=== PATIENT | female | born 1935 | race Caucasian/White ===

== ENCOUNTER → 2018-02-01 | Outpatient (CLI) | payer OTHER ==
[~2018-02-01] MED LIST: METO25ER PO; OLME20 PO; Prednisone20 MG PO; TRIHYD253A PO
== END ==
LOC: LAB 17:33 → LAB SHORT 17:33
DX: N76.4 Abscess of vulva (principal)
CPT/HCPCS: 87070; 87077; 87205

== ENCOUNTER → 2018-03-30 | Outpatient (CLI) | payer OTHER ==
[~2018-03-30] MED LIST changes: +CLIN150 PO; +LOSA50 PO; +Zofran8 MG PO
== END | disposition home or self-care (01) ==
LOC: LAB SHORT 12:23 → LAB 12:23
DX: N76.4 Abscess of vulva (principal)
CPT/HCPCS: 87070; 87205

== ENCOUNTER 2018-04-03 21:33 | Emergency (ER) | payer OTHER ==
[~2018-04-03] VITALS: Ht 154.9 cm; Wt 64.4 kg
[~2018-04-03 21:33] MED LIST changes: -CLIN150 PO; -LOSA50 PO; -Zofran8 MG PO
[2018-04-03 22:26] LABS: BASOPHILS ABSOLUTE AUTO 0.05 K/mm3 (0.00-0.23); BASOPHILS PERCENT AUTO 1 % (0-2); EOSINOPHILS PERCENT AUTO 0 % (0-6); Hematocrit 41.5 % (33.0-51.0); Hemoglobin 13.7 g/dL (11.5-16.0); IMMATURE GRAN ABSOLUTE AUTO 0.02 K/mm3 (0.00-0.10); IMMATURE GRAN PERCENT AUTO 0 % (0-1); LYMPHOCYTES ABSOLUTE AUTO 1.02 K/mm3 (0.84-5.20); LYMPHOCYTES PERCENT AUTO 10 % (21-46); MONOCYTES ABSOLUTE AUTO 0.44 K/mm3 (0.16-1.47); MONOCYTES PERCENT AUTO 4 % (4-13); Mean Corpuscular HGB 29.8 pg (26.0-34.0); Mean Corpuscular Volume 90 fL (80-100); Mean Platelet Volume 9.9 fL (9.1-12.4); NEUTROPHILS ABSOLUTE AUTO 8.72 K/mm3 (1.96-9.15); NEUTROPHILS PERCENT AUTO 85 % (41-73); Platelet Count 361 K/mm3 (150-400); RDW Coefficient Variation 14.2 % (11.7-14.2); RDW Standard Deviation 44.4 fL (35.1-46.3); Red Blood Cell Count 4.59 M/mm3 (3.80-5.20); White Blood Cell Count 10.25 K/mm3 (4.00-11.30)
[2018-04-03 22:40] LABS: Alanine Aminotransfer (ALT/SGP 19 U/L (12-78); Albumin, Blood 3.8 g/dL (3.4-5.0); Alk Phos 89 U/L (50-136); Anion Gap 9 mmol/L (6-16); Aspartate Aminotrans (AST/SGOT 20 U/L (12-37); Bilirubin, Total 0.3 mg/dL (0.1-1.0); Blood Urea Nitrogen 15 mg/dL (8-24); Bun/Creatinine Ratio 20.9 (12.0-20.0); CO2, Blood 27 mmol/L (21-32); Calcium, Blood 9.3 mg/dL (8.5-10.1); Chloride, Blood 106 mmol/L (98-108); Creatinine, Blood 0.72 mg/dL (0.40-1.00); Globulin, Blood 3.9 g/dL (2.2-4.0); Glomerular Filtration Rate >60 (60-); Glucose, Blood 112 mg/dL (70-99); Potassium, Blood 3.9 mmol/L (3.5-5.5); Sodium, Blood 142 mmol/L (136-145); Total Protein, Blood 7.7 g/dL (6.4-8.2); Troponin I <0.015 ng/mL (0.000-0.040)
[2018-04-03] MEDS ORDERED: LOSA50 PO (23:36)
[2018-04-03] MEDS ORDERED: CLIN150 PO (23:36)
[2018-04-04] MEDS ORDERED: Zofran8 MG PO (00:03)
== END 2018-04-04 00:50 | disposition home or self-care (01) ==
LOC: ER 21:33
PROVIDERS: Emergency Medicine
DX: R11.0 Nausea (principal); Z88.8 Allergy status to other drugs, medicaments and biological substances
CPT/HCPCS: 36415; 71045; 80053; 83690; 84484; 85025; 93005; 93010; J0780; J1200; J2405; J7120

== ENCOUNTER → 2021-04-15 | Outpatient (CLI) | payer OTHER ==
[~2021-04-15] MED LIST changes: +CLIN150 PO; +LOSA50 PO; +Zofran8 MG PO
== END | disposition home or self-care (01) ==
LOC: LAB SHORT 08:05
DX: C44.619 Basal cell carcinoma of skin of left upper limb, including shoulder (principal)
CPT/HCPCS: 88305

== ENCOUNTER 2022-09-05 00:50 | Inpatient (IN) | payer OTHER ==
[2022-09-05] VITALS (12 sets, daily range): BP systolic 113–149; BP diastolic 53–73
[~2022-09-05] VITALS: Ht 152.4 cm; Wt 65.7 kg
[2022-09-05] MEDS ORDERED: LATANOPROST2.5 M3 (00:56)
[2022-09-05] MEDS ORDERED: HYDR10 (00:56)
[2022-09-05 01:03] LABS: BASOPHILS ABSOLUTE AUTO 0.08 K/mm3 (0.00-0.23); BASOPHILS PERCENT AUTO 1 % (0-2); EOSINOPHILS ABSOLUTE AUTO 0.07 K/mm3 (0.00-0.68); EOSINOPHILS PERCENT AUTO 1 % (0-6); Hematocrit 41.7 % (33.0-51.0); Hemoglobin 13.9 g/dL (11.5-16.0); IMMATURE GRAN ABSOLUTE AUTO 0.04 K/mm3 (0.00-0.10); IMMATURE GRAN PERCENT AUTO 0 % (0-1); LYMPHOCYTES ABSOLUTE AUTO 1.65 K/mm3 (0.84-5.20); LYMPHOCYTES PERCENT AUTO 13 % (21-46); MONOCYTES ABSOLUTE AUTO 1.06 K/mm3 (0.16-1.47); MONOCYTES PERCENT AUTO 8 % (4-13); Mean Corpuscular HGB Conc 33.3 g/dL (31.5-36.5); Mean Corpuscular Volume 90 fL (80-100); Mean Platelet Volume 10.3 fL (9.1-12.4); NEUTROPHILS ABSOLUTE AUTO 9.77 K/mm3 (1.96-9.15); NEUTROPHILS PERCENT AUTO 77 % (41-73); Platelet Count 307 K/mm3 (150-400); RDW Coefficient Variation 14.4 % (11.7-14.2); RDW Standard Deviation 47.5 fL (35.1-46.3); Red Blood Cell Count 4.63 M/mm3 (3.80-5.20); White Blood Cell Count 12.67 K/mm3 (4.00-11.30)
[2022-09-05 01:23] LABS: Albumin, Blood 3.4 g/dL (3.4-5.0); Bilirubin, Total 0.6 mg/dL (0.1-1.0); Bun/Creatinine Ratio 18.8 (12.0-20.0); Calcium, Blood 8.8 mg/dL (8.5-10.1); Creatinine, Blood 0.8 mg/dL (0.40-1.00); Globulin, Blood 3.5 g/dL (2.2-4.0); Potassium, Blood 3.7 mmol/L (3.5-5.5); Total Protein, Blood 6.9 g/dL (6.4-8.2)
--- NOTE | 2022-09-05 06:56 | NUR ---
ER ADMIT FOR ACUTE CHOLECYSTITIS PT ARRIVED TO ROOM VIA GURNEY, AMBULATED TO ROOM FROM [facility]. A&OX4, PLEASANT AND COOPERATIVE. PLANS FOR 0800 SURGERY. PT STABLE AND DENIES PAIN AT THIS TIME. PT AMBULATES WELL AND LIVES INDEPENDANTLY IN OWN HOME. DENIES CG ASSISTANCE.
--- NOTE | 2022-09-05 07:41 | NUR ---
PATIENT JUST LEFT FOR THE OR.
--- NOTE | 2022-09-05 08:01 | NUR ---
DR VELA AT BEDSIDE PROVIDER ASSESSMENT, VERIFIED IRREGULAR HEART RYTHM AND ORDERS TELE TO BE PLACED DURING STAY R/T NO DX HX OF CARDIAC ISSUES.
--- NOTE | 2022-09-05 10:42 | NUR ---
PATIENT JUST ARRIVED FROM PACU TODAY AT 1030. POD 0 LAP SHARMIN PATIENT IS DROWSY BUT EASILY ARROUSED BY VERBAL STIMULI. WHEN AWAKE PATIENT IS A&OX4. PATIENT IS ON 3L NC AT THIS TIME WITH >90% OXYGEN SATS AND OTHERWISE VS ARE WNL. PATIENT DENIES PAIN AT THIS TIME. HER ABD HAS X4 LAP SITES WITH WOUND GLUE THAT ARE C/D/I. DENIES NAUSEA OR VOMITING. SHE IS TOLERATING SMALL AMOUNTS OF PO INTAKE. PATIENT IS LAYING IN BED WITH CALL LIGHT IN REACH.
--- NOTE | 2022-09-05 15:59 | NUR ---
SHIFT SUMMARY: POD 0 LAP SHARMIN PATIENT IS A&OX4. VS ARE WNL AND IS ON RA AT THIS TIME. PATIENT APPEARS TO BE MORE AWAKE THAN EARLIER IN THE SHIFT. SHE IS TOLERATING PO INTAKE. PATIENT HAS REFUSED PAIN MEDICATIONS BUT IS AWARE OF HER PRN PAIN MEDICATIONS. SHE HAS X4 ABD LAP SITES WITH WOUND GLUE THAT ARE ALL C/D/I. PATIENT DENIES NAUSEA OR VOMITING. SHE IS LAYING IN BED WITH CALL LIGHT IN REACH.
[2022-09-06 00:11] VITALS: BP 127/56
[2022-09-06 04:42] VITALS: BP 147/65
[2022-09-06 04:52] LABS: BASOPHILS ABSOLUTE AUTO 0.04 K/mm3 (0.00-0.23); BASOPHILS PERCENT AUTO 0 % (0-2); EOSINOPHILS ABSOLUTE AUTO 0.01 K/mm3 (0.00-0.68); EOSINOPHILS PERCENT AUTO 0 % (0-6); Hematocrit 37.3 % (33.0-51.0); Hemoglobin 12.6 g/dL (11.5-16.0); IMMATURE GRAN ABSOLUTE AUTO 0.06 K/mm3 (0.00-0.10); IMMATURE GRAN PERCENT AUTO 1 % (0-1); LYMPHOCYTES PERCENT AUTO 8 % (21-46); MONOCYTES ABSOLUTE AUTO 0.98 K/mm3 (0.16-1.47); MONOCYTES PERCENT AUTO 7 % (4-13); Mean Corpuscular HGB 30.2 pg (26.0-34.0); Mean Corpuscular HGB Conc 33.8 g/dL (31.5-36.5); Mean Corpuscular Volume 89 fL (80-100); Mean Platelet Volume 10.5 fL (9.1-12.4); NEUTROPHILS ABSOLUTE AUTO 11.14 K/mm3 (1.96-9.15); NEUTROPHILS PERCENT AUTO 84 % (41-73); Platelet Count 242 K/mm3 (150-400); RDW Coefficient Variation 14.9 % (11.7-14.2); Red Blood Cell Count 4.17 M/mm3 (3.80-5.20); White Blood Cell Count 13.23 K/mm3 (4.00-11.30)
[2022-09-06 05:16] LABS: Albumin, Blood 2.9 g/dL (3.4-5.0); Albumin/Globulin Ratio 0.9 (0.8-1.8); Bilirubin, Total 1.6 mg/dL (0.1-1.0); Bun/Creatinine Ratio 18.7 (12.0-20.0); Calcium, Blood 8.5 mg/dL (8.5-10.1); Creatinine, Blood 0.97 mg/dL (0.40-1.00); Globulin, Blood 3.1 g/dL (2.2-4.0); Potassium, Blood 3.9 mmol/L (3.5-5.5)
--- NOTE | 2022-09-06 06:45 | NUR ---
SHIFT SUMMARY POD 1 LAP SHARMIN, 4 LAP SITES W/ TISSUE GLUE. SITES C/D/I, NO CONCERS OF REDNESS, SWELLING, DRAINAGE, OR INCREASED PAIN. PT MEDICATED W/ TRAMADOL 1X FOR 1/10 ABD PAIN W/ GOOD RESULTS. PT DENIES N/T, N/V, DIZZINESS, OR SOB. AMB TO BATHROOM W/ ASSIST. NO ACUTE CHANGES THIS SHIFT, PT PLANS TO DISCHARGE TO HOME TODAY. CALL LIGHT W/IN REACH.
[2022-09-06 07:05] VITALS: BP 126/60
--- NOTE | 2022-09-06 14:00 | NUR ---
Upon receiving a referrral for spiritual care, I visited the patient. Patient is sitting on a chair and alert. She has a visitor in the . Patient shares about the events that led to the patient's hospitalization, the successful surgery and and the plan to d/c tomorrow. Patient talks about the of her spouse, the good family and friend support and her Sabianist samantha. I provide therapeutic listening and prayer. Patient responded well and showed signs of an elevated mood. I will continue to remain available to patient and family.
[2022-09-06 14:25] VITALS: BP 136/57
--- NOTE | 2022-09-06 18:44 | NUR ---
SHIFT SUMMARY PT A&OX4, VSS/RA, ANNA PO REG DIET, VOIDING, AMBULATING INDEPENDENTLY, PAIN MANAGED WITH ULTRAM PRN, UNASYN Q6/IVF KVO, TELE SB 56 BPM. POD1 SHRUTHI LAP SHARMIN, 5 LAP SITES, WOUND GLUE, DRY/INTACT. WILL REPORT TO ONCOMING NOC RN.
[2022-09-06 19:26] VITALS: BP 144/62
[2022-09-07 04:31] VITALS: BP 135/63
[2022-09-07 05:55] LABS: BASOPHILS PERCENT AUTO 1 % (0-2); EOSINOPHILS ABSOLUTE AUTO 0.28 K/mm3 (0.00-0.68); EOSINOPHILS PERCENT AUTO 3 % (0-6); Hematocrit 36.5 % (33.0-51.0); Hemoglobin 11.9 g/dL (11.5-16.0); IMMATURE GRAN ABSOLUTE AUTO 0.04 K/mm3 (0.00-0.10); IMMATURE GRAN PERCENT AUTO 0 % (0-1); LYMPHOCYTES ABSOLUTE AUTO 1.66 K/mm3 (0.84-5.20); LYMPHOCYTES PERCENT AUTO 17 % (21-46); MONOCYTES ABSOLUTE AUTO 1.28 K/mm3 (0.16-1.47); MONOCYTES PERCENT AUTO 13 % (4-13); Mean Corpuscular HGB 29.8 pg (26.0-34.0); Mean Corpuscular HGB Conc 32.6 g/dL (31.5-36.5); Mean Corpuscular Volume 91 fL (80-100); Mean Platelet Volume 10.5 fL (9.1-12.4); NEUTROPHILS ABSOLUTE AUTO 6.21 K/mm3 (1.96-9.15); NEUTROPHILS PERCENT AUTO 65 % (41-73); Platelet Count 245 K/mm3 (150-400); RDW Coefficient Variation 15.3 % (11.7-14.2); RDW Standard Deviation 51.2 fL (35.1-46.3); White Blood Cell Count 9.57 K/mm3 (4.00-11.30)
--- NOTE | 2022-09-07 06:15 | NUR ---
SHIFT SUMMARY NO ACUTE CHANGES NOTED, PAIN WNL, LAP SITES C/D/I, SR REPORTED BY DIRECT MAIL COORDINATOR, DENIES CP/PRESSURE, VSS, ON RA, TOLERATING PO INTAKE, VOIDING WNL, CALLS FOR ASSISTANCE PRN, RESTING COMFORTABLY THIS AM, CALL LIGHT IN REACH
[2022-09-07 06:33] LABS: Albumin, Blood 2.8 g/dL (3.4-5.0); Albumin/Globulin Ratio 0.9 (0.8-1.8); Bilirubin, Total 0.7 mg/dL (0.1-1.0); Bun/Creatinine Ratio 23.3 (12.0-20.0); Calcium, Blood 8.3 mg/dL (8.5-10.1); Creatinine, Blood 0.86 mg/dL (0.40-1.00); Globulin, Blood 3.2 g/dL (2.2-4.0); Potassium, Blood 4.1 mmol/L (3.5-5.5)
[2022-09-07 07:26] VITALS: BP 147/69
[2022-09-07 11:18] VITALS: BP 149/64
[2022-09-07] MEDS ORDERED: MIRALAX17 GM PO (11:18)
[2022-09-07] MEDS ORDERED: DOCU100 PO (11:18)
[2022-09-07] MEDS ORDERED: HYDR1TAB94 PO (11:21)
--- NOTE | 2022-09-07 11:30 | NUR ---
DISCHARGE PT A&OX4, VSS/RA, ANNA PO REG DIET, VOIDING/PASSING FLATUS, AMB INDEPENDENTLY, PAIN MANAGED, IV DC'D, TELE NSR 61 BPM. DC INS PROVIDED. PT REP UNDERSTANDING THOSE INSTRUCTIONS INCLUDING FU APPT WITH PCP AND SURGEON. LEFT FLOOR VIA WC WITH ORTHOPAEDIC SURGEON TO GO HOME WITH FRIEND WITH ALL PERSONAL POSSESSIONS INCLUDING DC PACKET AND 1 NARC SCRIPT.
== END 2022-09-07 11:45 | disposition home or self-care (01) | DRG 419 ==
LOC: ER 00:50 → SURS 00:51
PROVIDERS: Internal Medicine; Student in an Organized Health Care Education/Training Program; Surgery; ADMIT Internal Medicine
PROC: 8E0W4CZ Robotic Assisted Procedure of Trunk Region, Percutaneous Endoscopic Approach (ICD-10-PCS; 2022-09-05)
PROC: 0FT44ZZ Resection of Gallbladder, Percutaneous Endoscopic Approach (ICD-10-PCS; principal; 2022-09-05 08:00)
DX: K81.0 Acute cholecystitis (principal); M54.9 Dorsalgia, unspecified; I10 Essential (primary) hypertension; D72.829 Elevated white blood cell count, unspecified; R74.01 Elevation of levels of liver transaminase levels; R79.89 Other specified abnormal findings of blood chemistry; K59.00 Constipation, unspecified; Z88.8 Allergy status to other drugs, medicaments and biological substances; Z79.899 Other long term (current) drug therapy; Z90.710 Acquired absence of both cervix and uterus; Z90.89 Acquired absence of other organs
CPT/HCPCS: 36415; 71046; 74177; 76705; 80053; 83690; 83735; 84484; 85025; 88304; 93005; 93010; 94760; 96365-59; 96366; 96367; 96375; 96376; 99285-25; A9270; G0378; J0295; J1100; J1885; J2270; J2371; J2405; J2543; J2704; J3010; J7040; Q9967

== ENCOUNTER → 2022-12-15 | Outpatient (CLI) | payer OTHER ==
[~2022-12-15] MED LIST changes: +DOCU100 PO; +HYDR10; +HYDR1TAB94 PO; +LATANOPROST2.5 M3; +MIRALAX17 GM PO
== END ==
LOC: LAB 07:35 → LAB SHORT 07:35 → PLD 07:35
DX: L82.1 Other seborrheic keratosis (principal)
CPT/HCPCS: 88305

== ENCOUNTER 2024-08-21 10:41 | Day surgery (SDC) | payer OTHER ==
[~2024-08-21] VITALS: Ht 152.4 cm; Wt 64.0 kg
[~2024-08-21 10:41] MED LIST changes: +Balanced Salt Epinephrine Irrigation Solution 500 mL IR SCH; +Moxifloxacin HCL 0.5 MG/0.1 ML 0.4MLSYR RIGHTEYE SCH; +Ondansetron 4 MG SoluTab MM PRN; +PHENYLEPHRINE\\TROPICAMIDE\\TETRACAINE OPHTHALMIC DILATING SOLN RIGHTEYE PRN; +Povidone-Iodine 450 DROP/30 ML Solution ONE; +Povidone-Iodine 450 DROP/30 ML Solution RIGHTEYE SCH; +Tetracaine HCl/Pf 0.5% Opth Soln 4 ml ONE; +diazePAM 5 MG,diazePAM 2 MG PO SCH
--- NOTE | 2024-08-21 11:00 | NUR ---
08/21/24 1100 Catherine Cummins PT STATES ANXIETY LEVEL IS 0/10 BEFORE 7MG PO VALIUM CALL LIGHT IN HAND PT IS ON CONTINUOUS PULSE OX MONITORING
[2024-08-21] MEDS ORDERED: VITAMIN D310 MC4 (11:01)
[2024-08-21] MEDS ORDERED: LORA10ER (11:02)
--- NOTE | 2024-08-21 11:48 | NUR ---
08/21/24 1148 Catherine Almaguer HR: 51 BP: 169/97 SPO2: 97% ON BLOW BY O2
[2024-08-21 12:08] VITALS: BP 175/66
== END 2024-08-21 12:28 | disposition home or self-care (01) ==
LOC: ORSCSDS 10:41
PROVIDERS: Student in an Organized Health Care Education/Training Program
PROC: 08RJ3JZ Replacement of Right Lens with Synthetic Substitute, Percutaneous Approach (ICD-10-PCS; principal; 2024-08-21 13:30)
DX: H25.813 Combined forms of age-related cataract, bilateral (principal); H40.1231 Low-tension glaucoma, bilateral, mild stage; I10 Essential (primary) hypertension; Z79.899 Other long term (current) drug therapy; Z87.891 Personal history of nicotine dependence
CPT/HCPCS: A9270; V2632

== ENCOUNTER 2024-08-29 12:25 | Day surgery (SDC) | payer OTHER ==
[~2024-08-29] VITALS: Ht 152.4 cm; Wt 63.7 kg
[~2024-08-29 12:25] MED LIST changes: +LORA10ER; +Moxifloxacin HCL 0.5 MG/0.1 ML 0.4MLSYR LEFTEYE SCH; -Moxifloxacin HCL 0.5 MG/0.1 ML 0.4MLSYR RIGHTEYE SCH; +PHENYLEPHRINE\\TROPICAMIDE\\TETRACAINE OPHTHALMIC DILATING SOLN LEFTEYE PRN; -PHENYLEPHRINE\\TROPICAMIDE\\TETRACAINE OPHTHALMIC DILATING SOLN RIGHTEYE PRN; +Povidone-Iodine 450 DROP/30 ML Solution LEFTEYE SCH; -Povidone-Iodine 450 DROP/30 ML Solution RIGHTEYE SCH; +VITAMIN D310 MC4
--- NOTE | 2024-08-29 12:52 | NUR ---
08/29/24 1252 Catherine Cummins PT STATES ANXIETY LEVEL IS 2/10 BEFORE 7MG PO VALIUM. PT IS ON CONTINUOUS PULSE OX CALL LIGHT IN HAND
[2024-08-29] MEDS ORDERED: Tetracaine HCl 0.5% Opth Soln 15 ml LEFTEYE ONE (13:20)
--- NOTE | 2024-08-29 13:27 | NUR ---
08/29/24 1327 Ruba Whitmore 180/73 100% WUTH 10L OF BLOW BY O2 54 18
[2024-08-29 13:44] VITALS: BP 156/92
== END 2024-08-29 14:03 | disposition home or self-care (01) ==
LOC: ORSCSDS 12:25
PROVIDERS: Student in an Organized Health Care Education/Training Program
PROC: 08RK3JZ Replacement of Left Lens with Synthetic Substitute, Percutaneous Approach (ICD-10-PCS; principal; 2024-08-29 14:00)
DX: H25.812 Combined forms of age-related cataract, left eye (principal); Z96.1 Presence of intraocular lens; I10 Essential (primary) hypertension; Z87.891 Personal history of nicotine dependence; H40.1131 Primary open-angle glaucoma, bilateral, mild stage; Z79.899 Other long term (current) drug therapy
CPT/HCPCS: A9270; V2632